=== PATIENT | male | born 1940 | race Hispanic/Latino ===

== ENCOUNTER → 2020-07-19 | Outpatient (CLI) | payer OTHER | END | disposition home or self-care (01) | LOC: RAH 08:46 | PROVIDERS: ATTEND Internal Medicine Gastroenterology | DX: K21.9 Gastro-esophageal reflux disease without esophagitis (principal); K22.5 Diverticulum of esophagus, acquired; R13.10 Dysphagia, unspecified | CPT/HCPCS: 74220 ==

== ENCOUNTER → 2020-07-28 | Outpatient (CLI) | payer OTHER ==
--- NOTE | 2020-07-28 11:30 | NUR ---
MBSS COMPLETED. 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 RECOMMEND MECHANICAL SOFT, THIN LIQUIDS; PILLS CRUSHED WITH APPLESAUCE. RESULTS AND RECOMMENDATIONS REVIEWED WITH Pt. ALL QUESTIONS ANSWERED AT THIS TIME. Pt REPORTS THAT HE HAS BEEN TOLD HE IS NOT A CANDIDATE FOR SURGERY. IN ADDITION, HE HAS AN ENT CONSULT IN THE NEAR FUTURE. Pt VERBALIZED HE IS CURRENTLY FOLLOWING [employer] AND IS STILL DOING OK WHEN HE EATS. POWDER OPERATOR PROVIDED Pt WITH RESULTS AND RECOMMENDATIONS VIA WRITTEN MODALITY. EXTENSION TO REACH POWDER OPERATOR PROVIDED : 1612. Addendum: 07/29/20 at 0815 by [facility] Amended: Links added.
== END | disposition home or self-care (01) ==
LOC: RAH 10:34
PROVIDERS: ATTEND Internal Medicine Gastroenterology
DX: R13.10 Dysphagia, unspecified (principal); R63.3 Feeding difficulties
CPT/HCPCS: 74230; 92611